=== PATIENT | female | born 1960 | race African-American/Black ===

== ENCOUNTER 2017-09-20 06:35 | Day surgery (SDC) | payer BC, OTHER ==
[2017-09-18 14:59] VITALS: BMI 55.0
[2017-09-20] MEDS ORDERED: BUPIVACAINE HCL/PF 2.5 MG/ML - 30 ML VIAL IJ ONE (08:32)
[2017-09-20] MEDS ORDERED: MIDAZOLAM HCL 2 MG/2 ML SINGLE DOSE VIAL ONE ×3 (08:34→09:03)
[2017-09-20] MEDS ORDERED: BACITRACIN 15 GM TUBE TOPICAL OINTMENT ONE (08:48)
[2017-09-20] MEDS ORDERED: PROPOFOL 20 ML ONE (09:18)
[2017-09-20] MEDS ORDERED: ceFAZolin SODIUM 1 GM VIAL ONE ×2 (09:24→09:31)
[2017-09-20] MEDS ORDERED: DEXAMETHASONE SOD PHOSPHATE 4 MG/1 ML VIAL ONE (09:31)
[2017-09-20] MEDS ORDERED: ONDANSETRON 4 MG/2 ML VIAL ONE (09:31)
[2017-09-20] MEDS ORDERED: ACETAMINOPHEN 325 MG TABLET (FP) PO PRN (10:18)
[2017-09-20] MEDS ORDERED: ONDANSETRON 4 MG/2 ML VIAL IVPUSH PRN (10:18)
[2017-09-20] MEDS ORDERED: KETOROLAC TROMETHAMINE 30 MG/1 ML VIAL ONE (11:12)
[2017-09-20] MEDS ORDERED: KETOROLAC TROMETHAMINE 30 MG/1 ML VIAL IVPUSH ONE (11:15)
[2017-09-20] MEDS ORDERED: IBUPROFEN 600 MG TABLET (FP) PO ONE (12:09)
[2017-09-20 13:21] VITALS: TEMP 98.3
[2017-09-20 13:31] VITALS: BP 125/74; PULSE 86
--- NOTE | 2017-09-22 09:16 | OP ---
DATE OF OPERATION: 09/20/2017 SURGEON: Priyanka Santos MD DRY PLASTERER HELPER: SHAHANA Moore PREOPERATIVE DIAGNOSES: 1. Medial and lateral meniscal tear. 2. Left knee cartilage injury. 3. Left knee synovitis. POSTOPERATIVE DIAGNOSES: 1. Medial and lateral meniscal tear. 2. Left knee cartilage injury. 3. Left knee synovitis. PROCEDURE: 1. Left knee arthroscopy with partial meniscectomy, medial and lateral meniscus. 2. Left knee arthroscopy with chondroplasty and abrasion plasty. 3. Left knee arthroscopy with synovectomy, including removal of medial plica. FINDINGS: 1. Medial meniscus body and posterior horn tear. 2. Lateral meniscus posterior horn tear. 3. Synovitis of patellofemoral and medial and lateral notch area. 4. Grade 2 cartilage injury of the medial femoral condyle. 5. ACL and PCL intact. 6. Essentially grade 1 to 2 cartilage injury of the lateral tibial plateau. 7. Essentially grade 2 to 4 cartilage injury of the patellofemoral trochlea and patellofemoral joint. PROCEDURE: Informed consent was obtained. The patient was taken to the operating room where the right lower extremity was prepped and draped in a sterile fashion. A tourniquet was placed on the right upper thigh but not inflated. Using standard arthroscopic technique, a lateral incision and portal were made which allowed for introduction of the camera into the suprapatellar bursa. This was then taken to the medial joint line where under direct visualization, a medial incision and portal were made. Excessive synovium noted in the medial, lateral, patellofemoral and notch area was removed by the up-biting shaver and Bovie cautery. This was found to bring inflammatory tissue into the joint surface, a source of joint pain and dysfunction. Probing of the medial and lateral meniscus found tears described in the findings. These were removed with an up-biting shaver and taken back to a stable rim. Grade 2-3 degenerative changes were treated with chondroplasty, removing all flaking surfaces with low setting Bovie used along the periphery. Grade 4 changes were treated with abrasion-plasty. All areas of the knee were once again re-examined. The knee was then drained. A single suture was placed on all portals. Sterile dressing was placed. The patient was transferred to the recovery room. PRIYANKA SANTOS M.D. ELLIS/[id number]
--- NOTE | 2017-09-23 14:56 | PATH ---
Surgical Pathology Report Patient Name: ANGELES MAYS [facility]. Rec. #: [id number] /Age/Gender: 1960 (Age: 57) / F Account: [id number] Location: [facility] Taken: 09/20/2017 Received: 09/20/2017 Reported: 09/23/2017 Physicians: Omid Porras M.D. Specimen(s) Received LEFT KNEE SHAVINGS Clinical History Left knee tear lateral meniscus Final Diagnosis KNEE, LEFT, ARTHROSCOPIC SHAVINGS: FIBROSYNOVIAL TISSUE AND CARTILAGE. Electronically Signed Helene Gross M.D. Gross Description Received in formalin, labeled "left knee shavings," is a 3.3 x 2.2 x 0.3 cm. aggregate of schultz-yellow soft tissue fragments. A open claims representative portion is submitted in one cassette. /09/20/201709/20/2017
== END 2017-09-20 13:20 | disposition home or self-care (01) ==
LOC: FASU 06:35
PROVIDERS: ATTEND Orthopaedic Surgery
PROC: 0SBD4ZZ Excision of Left Knee Joint, Percutaneous Endoscopic Approach (ICD-10-PCS; 2017-09-20)
PROC: 0SBD4ZZ Excision of Left Knee Joint, Percutaneous Endoscopic Approach (ICD-10-PCS; 2017-09-20)
PROC: 0SBD4ZZ Excision of Left Knee Joint, Percutaneous Endoscopic Approach (ICD-10-PCS; principal; 2017-09-20 09:36)
DX: S83.242A Other tear of medial meniscus, current injury, left knee, initial encounter (principal); S83.282A Other tear of lateral meniscus, current injury, left knee, initial encounter; S83.8X2A Sprain of other specified parts of left knee, initial encounter; M65.862 Other synovitis and tenosynovitis, left lower leg; X58.XXXA Exposure to other specified factors, initial encounter; Y93.9 Activity, unspecified; Y92.9 Unspecified place or not applicable
CPT/HCPCS: 88304-TC; 94760